=== PATIENT | male | born 1960 | race African-American/Black ===

== ENCOUNTER 2024-10-31 14:53 | Emergency (ER) | payer OTHER ==
[2024-10-31 15:57] LABS: #Basophils 0.1 thou/uL (0.0-0.2); #Eosinophils 0.0 thou/uL (0.0-0.7); #Lymphocytes 1.5 thou/uL (1.20-3.40); #Monocytes 0.5 thou/uL (0.11-0.59); #Neutrophils 1.3 thou/uL (1.40-6.50); %Basophils 2.2 % (0.0-1.0); %Eosinophils 0.8 % (0.0-10.0); %Lymphocytes 45.3 % (21.0-51.0); %Monocytes 13.7 % (0.0-10.0); %Neutrophils 38.0 % (42.0-75.0); Hematocrit 37.2 % (42.0-52.0); Hemoglobin 12.9 g/dL (14.0-18.0); Mean Corpuscular Hemoglobin 30.1 pg (27.0-31.0); Mean Corpuscular Volume 86.9 fl (78.0-98.0); Platelet Count 139 10x3/uL (130-400); Red Blood Cell (RBC) Count 4.28 mill/uL (4.70-6.10); White Blood Cell (WBC) Count 3.4 10x3/uL (4.8-10.8)
[2024-10-31 16:06] LABS: ALT (SGPT) 14 U/L (Less than 45); AST (SGOT) 30 U/L (11-34); Albumin 4.0 g/dL (3.1-4.5); Alkaline Phosphatase 91 U/L (40-110); Anion Gap 15 mmol/L (10-20); BUN (Urea Nitrogen) 15 mg/dL (8.4-25.7); Bilirubin, Total 0.4 mg/dL (0.3-1.2); Calc. Creatinine Clearance 0 mL/min (70-130); Calcium 9.5 mg/dL (7.8-10.44); Carbon Dioxide 28 mmol/L (23-31); Chloride 101 mmol/L (98-107); Globulin 3.8 g/dL (2.4-3.5); Glucose 86 mg/dL (80-115); Potassium 4.2 mmol/L (3.5-5.1); Sodium 140 mmol/L (136-145)
[2024-10-31 17:29] LABS: Glucose, Urine (Dipstick) Negative (Negative); Leukocyte Trace (Negative); Protein, Urine (Dipstick) Negative (Neg-Trace); Specific Gravity, Urine 1.020 (1.005-1.030)
[2024-10-31 18:03] LABS: Bacteria/HPF Rare-Few HPF (None Seen); CAUTI Indications for Culture Dysuria,urgency,freq; RBC/HPF 0-3 HPF (0-3); WBC/HPF 0-3 HPF (0-3)
[2024-10-31 18:04] LABS: Urine Culture Reflex No No
== END 2024-10-31 18:32 ==
LOC: NAV ERS 14:53 → EEVIPCON 14:53 → NAV ERS 18:32
DX: R10.84 Generalized abdominal pain (principal); M79.89 Other specified soft tissue disorders; I10 Essential (primary) hypertension; E66.9 Obesity, unspecified; K21.9 Gastro-esophageal reflux disease without esophagitis; E78.5 Hyperlipidemia, unspecified; Z86.718 Personal history of other venous thrombosis and embolism; Z79.01 Long term (current) use of anticoagulants; Z79.899 Other long term (current) drug therapy
CPT/HCPCS: 80053; 81001; 85025; 99284

== ENCOUNTER 2025-01-06 03:28 | Emergency (ER) | payer OTHER ==
[2025-01-06 04:10] LABS: #Basophils 0.1 thou/uL (0.0-0.2); #Eosinophils 0.0 thou/uL (0.0-0.7); #Lymphocytes 2.1 thou/uL (1.20-3.40); #Monocytes 0.5 thou/uL (0.11-0.59); #Neutrophils 1.6 thou/uL (1.40-6.50); %Basophils 2.7 % (0.0-1.0); %Eosinophils 0.8 % (0.0-10.0); %Lymphocytes 47.5 % (21.0-51.0); %Monocytes 12.1 % (0.0-10.0); %Neutrophils 37.0 % (42.0-75.0); Hematocrit 39.5 % (42.0-52.0); Hemoglobin 13.0 g/dL (14.0-18.0); Mean Corpuscular Hemoglobin 29.8 pg (27.0-31.0); Mean Corpuscular Volume 90.4 fl (78.0-98.0); Platelet Count 128 10x3/uL (130-400); Red Blood Cell (RBC) Count 4.37 mill/uL (4.70-6.10); White Blood Cell (WBC) Count 4.4 10x3/uL (4.8-10.8)
[2025-01-06 04:19] LABS: Anion Gap 14 mmol/L (10-20); BUN (Urea Nitrogen) 18 mg/dL (8.4-25.7); Calc. Creatinine Clearance 0 mL/min (70-130); Carbon Dioxide 27 mmol/L (23-31); Chloride 100 mmol/L (98-107); Potassium 4.2 mmol/L (3.5-5.1); Sodium 137 mmol/L (136-145)
[2025-01-06 04:20] LABS: ALT (SGPT) 15 U/L (Less than 45); AST (SGOT) 28 U/L (11-34); Albumin 4.1 g/dL (3.1-4.5); Alkaline Phosphatase 108 U/L (40-110); Bilirubin, Total 0.4 mg/dL (0.3-1.2); Calcium 9.4 mg/dL (7.8-10.44); Globulin 3.6 g/dL (2.4-3.5); Glucose 89 mg/dL (80-115); Lipase 44 U/L (8-78)
[2025-01-06 04:52] LABS: Bacteria/HPF 4+ HPF (None Seen); CAUTI Indications for Culture Dysuria,urgency,freq; Glucose, Urine (Dipstick) Negative (Negative); Leukocyte Small (Negative); Protein, Urine (Dipstick) 30 mg/dL (Neg-Trace); Specific Gravity, Urine 1.020 (1.005-1.030); WBC/HPF Greater than 50 HPF (0-3)
[2025-01-06 04:53] LABS: Urine Culture Reflex Yes Yes
[2025-01-06] MEDS ORDERED: Cephalexin 500 MG CAP ONE (06:25)
[2025-01-06] MEDS ORDERED: Iopamidol 370 76% 100 ML VIAL ONE (09:00)
== END 2025-01-06 06:50 ==
LOC: NAV ERS 03:28
DX: N39.0 Urinary tract infection, site not specified (principal); Z86.718 Personal history of other venous thrombosis and embolism; E78.5 Hyperlipidemia, unspecified; I10 Essential (primary) hypertension; E66.9 Obesity, unspecified; Z79.899 Other long term (current) drug therapy; Z79.01 Long term (current) use of anticoagulants
CPT/HCPCS: 36415; 74177; 80053; 81001; 83605; 83690; 85025; 87077; 87086; 87186; Q9967